=== PATIENT | male | born 1990 | race Caucasian/White ===

== ENCOUNTER 2023-08-18 08:24 | Emergency (ER) | payer BC, OTHER ==
[~2023-08-18] VITALS: Ht 185.4 cm; Wt 138.5 kg
[2023-08-18 08:26] VITALS: BP 154/95; TEMP 96.1; O2SAT 99
[2023-08-18] MEDS: KETOROLAC 60MG 2ML VIAL IM ONE (09:32)
[2023-08-18] MEDS ORDERED: METH-1164 PO (09:54)
[2023-08-18] MEDS ORDERED: NAPR-837 PO (09:54)
== END 2023-08-18 10:06 | disposition home or self-care (01) ==
LOC: M ED 08:24
DX: S43.402A Unspecified sprain of left shoulder joint, initial encounter (principal); V49.40XA Driver injured in collision with unspecified motor vehicles in traffic accident, initial encounter; Y92.410 Unspecified street and highway as the place of occurrence of the external cause; Y93.9 Activity, unspecified; Y99.9 Unspecified external cause status; Z88.0 Allergy status to penicillin; Z88.2 Allergy status to sulfonamides; Z91.048 Other nonmedicinal substance allergy status; Z79.899 Other long term (current) drug therapy
CPT/HCPCS: 71101; 73030; 96372; 99284; J1885

== ENCOUNTER 2023-08-27 10:39 | Emergency (ER) | payer OTHER ==
[~2023-08-27] VITALS: Ht 193 cm; Wt 280.0 kg
[~2023-08-27 10:39] MED LIST: METH-1164 PO; NAPR-837 PO
[2023-08-27] MEDS: KETOROLAC 60MG 2ML VIAL IM ONE (12:08)
[2023-08-27] MEDS ORDERED: IBUP-1022 PO (14:18)
[2023-08-27] MEDS ORDERED: CYCL-707 PO (14:18)
[2023-08-27 14:32] VITALS: BP 151/90; TEMP 97.4; O2SAT 100
== END 2023-08-27 14:33 | disposition home or self-care (01) ==
LOC: M ED 10:39
DX: S43.402A Unspecified sprain of left shoulder joint, initial encounter (principal); J45.909 Unspecified asthma, uncomplicated; Y92.9 Unspecified place or not applicable; Y93.9 Activity, unspecified; Y99.9 Unspecified external cause status; Z88.0 Allergy status to penicillin; Z88.2 Allergy status to sulfonamides; Z91.09 Other allergy status, other than to drugs and biological substances; Z79.899 Other long term (current) drug therapy; Z79.1 Long term (current) use of non-steroidal anti-inflammatories (NSAID)
CPT/HCPCS: 72125; 73030; 96372; 99283; J1885

== ENCOUNTER → 2024-02-22 | Outpatient (CLI) | payer OTHER ==
[~2024-02-22] MED LIST changes: +CYCL-707 PO; +IBUP-1022 PO
[2024-02-27 17:33] LABS: 25-HYDROXY VITAMIN D2 < 8 pg/mL; 25-HYDROXY VITAMIN D3 35 pg/mL; VITAMIN D 1 25 DIHYDROXY 35 pg/mL (18-72)
== END ==
LOC: M PLALAB 10:14
PROVIDERS: ATTEND Orthopaedic Surgery
DX: S43.005D Unspecified dislocation of left shoulder joint, subsequent encounter (principal)